=== PATIENT | female | born 1985 | race American Indian/Alaskan Native ===

== ENCOUNTER 2021-01-01 09:19 | Emergency (ER) | payer SELFPAY ==
[2021-01-01 10:32] VITALS: BP 129/82
--- NOTE | 2021-01-01 11:59 | Emergency Department Report ---
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 Patient states she was skating when she fell onto her outstretched right hand. The thumb has been painful and swollen since the fall. No history of prior right hand injuries. Denies headache, neck pain, shoulder pain, elbow pain, wrist pain, paresthesias, numbness, skin color changes. Denies other complaints at this time. - Related Data Allergies Allergy/AdvReac Type Severity Reaction Status Date / Time No Known Allergies Allergy Unverified 01/01/21 10:29 ED Review of Systems ROS: Stated complaint: RT THUMB SWOLLEN Other details as noted in HPI Other: CARDIOVASCULAR: Negative for chest pain. PULMONARY: Negative for dyspnea. GASTROINTESTINAL: Negative for abdominal pain. MUSCULOSKELETAL: Positive for thumb pain. NEUROLOGICAL: Negative for headache. INTEGUMENTARY: Negative for ecchymosis. ED Past Medical Hx - Past Medical History Previous Medical History?: No - Surgical History Past Surgical History?: Yes Additional Surgical History: ED Physical Exam - General Limitations: No Limitations - Other Other exam information: General: Awake, appropriately interactive, no acute distress. Neck: Supple. Full range of motion intact. Cardiovascular: Normal peripheral perfusion. Pulmonary: No respiratory distress. Patient is speaking normally without use of accessory muscles. Skin: No apparent rashes or lesions. Neurological: No facial asymmetry. Speech is clear. Follows commands. Patient is alert and oriented. Musculoskeletal: Tenderness to palpation throughout the right thumb with diffuse swelling. No obvious deformity or dislocation. Active and passive range of motion intact in all directions with and without resistance. No overlying warmth or erythema. No wrist tenderness. No tenderness along the distribution of the flexor tendon sheath. Distal neurovascular and motor/sensory function intact. Psych: Cooperative. Appropriate mood and affect. ED Course Vital Signs 01/01/21 10:30 Temperature 98.8 F Pulse Rate 67 Respiratory 16 Rate Blood Pressure 129/82 O2 Sat by Pulse 100 Oximetry ED Medical Decision Making - Medical Decision Making Differential diagnosis including but not limited to: sprain, strain, fracture, contusion, dislocation, tendon injury On reevaluation, patient remains stable. Repeat neurovascular exam remains intact. X-rays of the thumb without acute process. History and exam findings suggestive of soft tissue injury. Patient will be discharged home with referral to orthopedics for further evaluation on an outpatient basis. Advised [id number] analgesics for pain and recommended Velcro thumb splint for immobilization. Patient expressed understanding and is agreeable to plan of care. RICE precautions discussed. Strict return precautions provided. Repeat exam is unremarkable and benign. History, exam, diagnostic testing, and current condition do not suggest worrisome pathology to warrant further testing, continued ED treatment, admission, or surgical evaluation at this point. Given the low probability of a significant medical illness, it would be more likely to result in harm than benefit to perform further testing at this stage. Discussed findings, presumptive diagnosis, need for follow-up and specific signs/symptoms that should prompt immediate return to the emergency department. Instructions were explained in detail to the patient in addition to giving written discharge information. Patient expressed understanding and was given the opportunity to ask questions, all of which were satisfactorily answered prior to discharge home. Critical care attestation.: If time is entered above; I have spent that time in minutes in the direct care of this critically ill patient, excluding procedure time. ED Disposition Clinical Impression: Pain of right thumb Disposition: DC-01 TO HOME OR SELFCARE Is pt being admited?: No Does the pt Need Aspirin: No Condition: Stable Instructions: Hand Pain Additional Instructions: Take Tylenol every 4 hours and Motrin every 8 hours as needed for pain. Wear thumb splint as directed. Follow-up with Dr. Young, orthopedics, next week. Call today to schedule an appointment. Return to the emergency department immediately for new or worsening symptoms. Referrals: NOE YOUNG MD [Staff Physician] - 3-5 Days Time of Disposition: 12:41
--- NOTE | 2021-01-01 12:36 | XRay Report ---
RIGHT HAND 3 VIEWS INDICATION: fall onto right hand; thumb pain/swelling. COMPARISON: None. IMPRESSION: No acute osseous or soft tissue abnormality. No significant DJD. Signer Name: Gab Burgess Jr, MD Signed: 01/01/2021 12:31 PM Workstation Name: [id number]
== END 2021-01-01 13:40 | disposition home or self-care (01) ==
LOC: ED 09:19
DX: M79.644 Pain in right finger(s) (principal)
CPT/HCPCS: 99283